=== PATIENT | female | born 1930 | race Caucasian/White ===

== ENCOUNTER → 2016-05-08 | Outpatient (CLI) | payer MEDICARE, OTHER ==
[~2016-05-08] MED LIST: CALC-586 PO; CHOL10003 PO; DULO60CA25 PO; FURO20TA6 PO; METO25TA41 PO; OXYC1TAB11 PO; POLY12PO2 PO; POTA-12 PO; SERT25TA PO; ZOLP-109 PO; vitamin e
--- NOTE | 2016-05-08 16:25 | DI ---
Indication: ITS.REASON: M25.539 CHRONIC WRIST PAIN; M79.643 HAND PAIN PROCEDURE: MRI HAND LEFT W/O CONTRAST: Encounter: Initial Comparison: None Technique: Multiplanar multisequence MR imaging of the left hand was performed without contrast. Findings: There is motion artifact limiting the exam. Bone marrow signal intensity shows no acute fracture. Intrinsic hand muscular signal intensity is normal. The flexor and extensor tendons appear grossly intact. 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 Impression: Limited exam due to motion artifact. No gross acute abnormality. .
--- NOTE | 2016-05-09 08:31 | DI ---
Indication: ITS.REASON: M25.539 CHRONIC WRIST PAIN; M79.643 HAND PAIN PROCEDURE: MRI WRIST LEFT W/O CONTRAST: Comparison: Left hand MRI from the same date Technique: Multiplanar multisequence MR imaging of the left wrist was performed without contrast. Findings: Exam is severely limited due to motion artifact. Several of the sequences are nondiagnostic. There is no gross acute fracture seen. There is some mild subchondral cystic degenerative change in the wrist which is less than normal for the patient's age. No obvious scapholunate or lunotriquetral ligament tear. TFC is not well evaluated due to the motion artifact. The visualized flexor and extensor tendons are grossly intact. No focal area of soft tissue swelling or obvious mass appreciated. No fluid collections seen. Impression: Limited exam due to severe motion artifact. No gross acute abnormality. .
== END ==
LOC: IMA 14:32
PROVIDERS: ATTEND Family Medicine
DX: M25.532 Pain in left wrist (principal); M79.642 Pain in left hand

== ENCOUNTER → 2016-06-19 | Outpatient (CLI) | payer MEDICARE, OTHER ==
--- NOTE | 2016-06-19 15:48 | DI ---
EXAM: CT RENAL W/O CONTRAST LOCATION OF DICTATION: [facility] HISTORY: ITS.REASON: R10.9 RIGHT FLANK PAIN COMPARISON: No prior studies available for comparison. TECHNIQUE: Multiple contiguous axial images were obtained of the abdomen and pelvis without contrast. Thin sections were obtained through the kidneys and ureters. Automated Exposure Control and Iterative Reconstruction dose reducing techniques were utilized. FINDINGS: CT ABDOMEN LUNG BASES: The lung bases are clear apart from mild atelectasis. The heart size is mildly enlarged. Moderate sized paraesophageal hiatal hernia suggested. LIVER: Unremarkable. SPLEEN: Unremarkable. GALLBLADDER: Unremarkable. PANCREAS: Unremarkable ADRENAL GLANDS: Unremarkable. KIDNEYS: The right and left kidneys are normal without hydronephrosis or obstructing calculus. Visualized ureters are within normal limits. There are pelvic phleboliths demonstrated. 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 LYMPH NODES: Unremarkable. STOMACH BOWEL LOOPS: The bowel loops are normal caliber. There is no bowel obstruction or free air. Mild diverticulosis of the sigmoid colon. No evidence for diverticulitis. Postsurgical changes demonstrating partial colectomy with anastomosis in the sigmoid colon region. PERITONEAL CAVITY: There is no abdominal or pelvic inflammatory mass or ascites. CT PELVIS URINARY BLADDER: Unremarkable. PELVIC VISCERA: The vaginal cuff is normal. There are no adnexal masses. OSSEOUS STRUCTURES: There is moderate spondylosis of the visualized portions of the thoracolumbar spine with significant left convexed curvature of the lumbar spine. There is 1.5 cm left lateral listhesis of L3 on L4 and 1 cm of right lateral listhesis of T12 on L1. Multilevel central canal/neuroforaminal stenosis suggested. IMPRESSION: 1. Right left kidneys are within normal limits without hydronephrosis, obstructing calculus, or mass. The bladder is decompressed and unremarkable. 2. Postsurgical changes of partial colonic resection with anastomosis about the sigmoid colon. The uterus and appendix are surgically absent. 3. Moderate sized paraesophageal hiatal hernia. 4. Sigmoid diverticulosis without diverticulitis. 5. 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 Moderate spondylosis. Multilevel central canal/neuroforaminal stenosis which can be better evaluated with MRI. .
== END ==
LOC: IMA 13:53
PROVIDERS: ATTEND Specialist
DX: K44.9 Diaphragmatic hernia without obstruction or gangrene (principal); K57.30 Diverticulosis of large intestine without perforation or abscess without bleeding; M47.816 Spondylosis without myelopathy or radiculopathy, lumbar region; Z90.49 Acquired absence of other specified parts of digestive tract; Z90.710 Acquired absence of both cervix and uterus; Z98.0 Intestinal bypass and anastomosis status; R10.12 Left upper quadrant pain